=== PATIENT | female | born 1950 | race Caucasian/White ===

== ENCOUNTER 2020-09-12 18:30 | Observation (INO) ==
[2020-09-12 19:30] LABS: Basophils # 0.1 K/mcL (0.0-0.2); Basophils % 0.6 %; Eosinophils # 0.2 K/mcL (0.0-0.6); Eosinophils % 1.8 %; Hematocrit 37.3 % (35.3-44.9); Hemoglobin 12.3 g/dL (11.5-15.4); Immature Granulocytes % 0.8 % (0-4); Lymphocytes # 2.3 K/mcL (0.6-4.6); Lymphocytes % 22.2 %; Mean Corpuscular Hemoglobin 31.1 pg (28.0-33.3); Mean Corpuscular Volume 94.4 fL (83.0-100.0); Monocytes # 0.9 K/mcL (0.0-1.3); Monocytes % 8.9 %; Neutrophils # 6.7 K/mcL (1.6-8.9); Platelet Count 254 K/mcL (140-400); Red Blood Count 3.95 M/mcL (3.82-4.97); Red Cell Distribution Width 11.9 % (11.5-14.5); Segmented Neutrophils % 65.7 %; White Blood Count 10.2 K/mcL (4.3-11.1)
[2020-09-12 19:51] LABS: Alanine Aminotransferase 41 Units/L (7-52); Albumin 4.2 g/dL (3.5-5.7); Albumin/Globulin Ratio 1.4 (1.1-2.2); Alkaline Phosphatase 52 Units/L (34-104); Aspartate Amino Transferase 20 Units/L (13-39); BUN/Creatinine Ratio 20 (6-26); Bilirubin,Direct 0.1 mg/dL (0.0-0.2); Bilirubin,Indirect 0.4 mg/dL (0.0-1.0); Bilirubin,Total 0.5 mg/dL (0.3-1.0); Blood Urea Nitrogen 30 mg/dL (8-23); Calcium 9.1 mg/dL (8.6-10.3); Carbon Dioxide 22 mEq/L (23-29); Chloride 105 mEq/L (98-107); Ethanol < 10 mg/dL (Less than 10); Globulin 2.9 g/dL (2.4-3.5); Glucose 67 mg/dL (70-105); Osmolality,Calculated 292 (280-300); Potassium 4.5 mEq/L (3.5-5.1); Sodium 139 mEq/L (136-145); Total Protein 7.1 g/dL (6.4-8.9); eGFR For African Americans 42 (> 60); eGFR For Non-African Americans 35 (> 60)
[2020-09-12] MEDS ORDERED: 0.9 % Sodium Chloride 1,000 ML IVC ONE (19:53)
[2020-09-12 20:03] LABS: Thyroid Stimulating Hormone 0.063 mcIU/mL (0.340-5.600)
[2020-09-12 20:52] LABS: Bacteria,Urine Moderate per hpf (None-Few); Bilirubin,Urine Negative (Negative); Blood,Urine Negative (Negative); Clarity,Urine Clear (Clear); Color,Urine Colorless (Yellow); Glucose,Urine (UA) Normal (Normal); Ketones,Urine Negative (Negative); Leukocyte Esterase,Urine Small (Negative); Mucus,Urine Few per lpf (None-Few); Nitrite,Urine Negative (Negative); Protein,Urine Negative (Neg-Trace); RBC,Urine 0-3 per hpf (0-3); Specific Gravity,Urine 1.007 (1.010-1.025); Squamous Epithelial Cell,Urine Few per hpf (None-Few); Urobilinogen,Urine Normal (Normal); WBC,Urine 0-3 per hpf (0-3)
[2020-09-12 20:53] LABS: Amphetamine Screen,Urine Negative ng/mL (Cutoff=1000); Barbiturate Screen,Urine Negative ng/mL (Cutoff=200); Benzodiazepines Screen,Urine Negative ng/mL (Cutoff=200); Cannabinoid Screen,Urine Negative ng/mL (Cutoff = 50); Cocaine Screen,Urine Negative ng/mL (Cutoff= 300); Opiate Screen,Urine Negative ng/mL (Cutoff=300); Phencyclidine Screen,Urine Negative ng/mL (Cutoff=25)
[2020-09-12 21:36] LABS: Troponin I < 0.03 ng/mL (< 0.04)
[2020-09-12] MEDS ORDERED: 0.9 % Sodium Chloride 1,000 ML IVC SCH (22:30)
[2020-09-12] MEDS ORDERED: Naloxone 0.4 MG/ML INJ IVP PRN (22:30)
[2020-09-12 23:26] LABS: Triiodothyronine (T3) Free 3.13 pg/mL (2.50-3.90)
[2020-09-12 23:31] LABS: Triiodothyronine (T3) Total 0.88 ng/mL (0.87-1.78)
[2020-09-13] MEDS ORDERED: D5% in 0.45% NACL 1,000 ML IVC SCH (00:30)
[2020-09-13 01:29] LABS: Hematocrit 33.2 % (35.3-44.9); Mean Corpuscular HGB Conc 33.1 g/dL (31.6-35.5); Mean Corpuscular Hemoglobin 31.7 pg (28.0-33.3); Mean Corpuscular Volume 95.7 fL (83.0-100.0); Mean Platelet Volume 10.3 fL (9.4-12.4); Platelet Count 218 K/mcL (140-400); Red Blood Count 3.47 M/mcL (3.82-4.97)
[2020-09-13 01:52] LABS: Calcium 8.8 mg/dL (8.6-10.3); Potassium 4.7 mEq/L (3.5-5.1)
[2020-09-13] MEDS ORDERED: Dextrose Gel 15 GM/37.5 ML TUBE PO PRN ×2 (02:25)
[2020-09-13] MEDS ORDERED: D5% in Water 1,000 ML IVC PRN (02:25)
[2020-09-13] MEDS ORDERED: *HR* Dextrose 50 % in Water (Vial) 50 ML VIAL IVP PRN (02:25)
[2020-09-13] MEDS: Insulin LISPRO 300 UNITS/3 ML VIAL SUBQ SCH ×5 (03:01→21:00)
[2020-09-13] MEDS ORDERED: Cyanocobalamin (B-12) 1,000 MCG/ML VIAL IM ONE (07:34)
[2020-09-13] MEDS: Valsartan 160 MG TABLET PO SCH (08:22)
[2020-09-13] MEDS: hydroCHLOROthiazide 25 MG TABLET PO SCH (08:23)
[2020-09-14] MEDS: Insulin LISPRO 300 UNITS/3 ML VIAL SUBQ SCH ×4 (00:49→11:28)
[2020-09-14 01:57] LABS: Hematocrit 32.7 % (35.3-44.9); Hemoglobin 10.9 g/dL (11.5-15.4); Mean Corpuscular HGB Conc 33.3 g/dL (31.6-35.5); Mean Corpuscular Hemoglobin 31.7 pg (28.0-33.3); Mean Corpuscular Volume 95.1 fL (83.0-100.0); Mean Platelet Volume 10.5 fL (9.4-12.4); Platelet Count 211 K/mcL (140-400); Red Blood Count 3.44 M/mcL (3.82-4.97); Red Cell Distribution Width 11.9 % (11.5-14.5); White Blood Count 8.4 K/mcL (4.3-11.1)
[2020-09-14 02:17] LABS: Magnesium 1.5 mg/dL (1.6-2.6); Potassium 4.6 mEq/L (3.5-5.1)
[2020-09-14 06:53] VITALS: BP 136/93
[2020-09-14] MEDS ORDERED: Cyanocobalamin (B-12) 1,000 MCG/ML VIAL IM ONE (09:00)
[2020-09-14] MEDS ORDERED: cefTRIAXone 1,000 MG in Water for inj. (sterile) 10 ML IVP SCH (09:00)
[2020-09-14] MEDS: Valsartan 160 MG TABLET PO SCH (09:06)
[2020-09-14] MEDS: hydroCHLOROthiazide 25 MG TABLET PO SCH (09:06)
[2020-09-16 15:39] LABS: Estimated Average Glucose 140 mg/dl; Hemoglobin A1C 6.5 %
== END 2020-09-14 13:44 | disposition home or self-care (01) ==
LOC: EMEROOARM 18:30 → 3BNU 18:30 → SUATTDRO 23:14 → 3BNU 09-13 00:43
PROVIDERS: ADMIT Student in an Organized Health Care Education/Training Program; ATTEND Internal Medicine